=== PATIENT | female | born 1955 | race Caucasian/White ===

== ENCOUNTER → 2016-03-15 | Outpatient (CLI) | payer OTHER ==
[~2016-03-15] MED LIST: ASPIRIN 81M81 MG/TA2 PO; CARDIZEM CD 24240 MG PO; CATAPRES 0.1MG0.1 MG PO; CEFTIN500 MG PO; CLARITIN 1010 MG/TAB PO; FERROUS SU325 MG/TAB PO; FLONASE NASAL S16 GM NS; GLUCOPHAGE XR750 MG PO; HCTZ 25MG TAB25 MG PO; INDERAL 20MG20 MG PO; KLOR-CON M2020 MEQ PO; LANTUS100 U/ML SC; LASIX 20MG TABL20 MG PO; NORVASC 10MG10 MG PO; NOVOLOG 100U100 U/M1 SQ; PERCOCET 325 MG1 TA2 PO; PERCOCET 325 MG1 TA3 PO; PRAVACHOL 40MG40 MG PO; PREDNISONE10 MG PO; PREDNISONE20 MG PO; PRILOSEC 20MG20 MG PO; PROAIR HFA0.09 MG/AC IH; RT ADVAIR HFA 1112 G IH; SINEMET 10/101 UDTAB PO; TENORMIN100 MG PO; TRESIBA FL100 UNIT/1 SQ; ULTRAM 50MG TAB50 MG PO; VALIUM 5MG T5 MG/TAB PO; VOLTAREN 50MG T50 MG PO; ZITHROMAX500 M2 PO; ZOLOFT 100MG100 MG PO
[2016-03-15 15:07] LABS: ADJUSTED CALCIUM 9.5 mg/dL (8.4-10.2); ALBUMIN 3.9 gm/dL (3.5-5.0); BILIRUBIN,TOTAL 1.2 mg/dL (0.0-1.0); CALCIUM 9.4 mg/dL (8.4-10.2); CREATININE, serum 0.76 mg/dL (0.52-1.25); POTASSIUM 3.8 mmol/L (3.4-5.0); TOTAL PROTEIN 8.4 gm/dL (6.4-8.2)
== END ==
LOC: COL.LAB 14:31
PROVIDERS: Family Medicine
DX: R06.09 Other forms of dyspnea (principal)

== ENCOUNTER → 2016-03-18 | Outpatient (CLI) | payer SELFPAY | LOC: COL.PUL 09:30 | DX: R06.02 Shortness of breath (principal) ==

== ENCOUNTER 2016-03-19 10:22 | Inpatient (IN) | payer OTHER ==
[~2016-03-19] VITALS: Ht 157.5 cm; Wt 124.9 kg
[~2016-03-19 10:22] MED LIST changes: -CARDIZEM CD 24240 MG PO; -CATAPRES 0.1MG0.1 MG PO; -CEFTIN500 MG PO; -FERROUS SU325 MG/TAB PO; -FLONASE NASAL S16 GM NS; -HCTZ 25MG TAB25 MG PO; -KLOR-CON M2020 MEQ PO; -LASIX 20MG TABL20 MG PO; -PERCOCET 325 MG1 TA3 PO; -PREDNISONE10 MG PO; -PREDNISONE20 MG PO; -PROAIR HFA0.09 MG/AC IH; -RT ADVAIR HFA 1112 G IH; -SINEMET 10/101 UDTAB PO; -TENORMIN100 MG PO; -TRESIBA FL100 UNIT/1 SQ; -ULTRAM 50MG TAB50 MG PO; -VALIUM 5MG T5 MG/TAB PO; -VOLTAREN 50MG T50 MG PO; -ZITHROMAX500 M2 PO
[2016-03-19 11:32] LABS: ALBUMIN 4.3 gm/dL (3.5-5.0); BILIRUBIN,TOTAL 1.3 mg/dL (0.0-1.0); CALCIUM 9.2 mg/dL (8.4-10.2); CREATININE, serum 0.88 mg/dL (0.52-1.25); POTASSIUM 3.1 mmol/L (3.4-5.0); TOTAL PROTEIN 8.9 gm/dL (6.4-8.2)
[2016-03-19 11:36] LABS: BASO % 0.4 % (0.0-2.0); EOS % 0.4 % (0-4.0); GRAN # 3.9 (1.4-6.5); GRAN % 70.4 % (42.2-75.2); HEMATOCRIT 32.7 % (37.0-47.0); HEMOGLOBIN 9.7 g/dl (12.5-16.0); LYMPH % 17.4 % (20.0-51.0); MEAN CELL VOLUME 78 fl (80.0-100.0); MEAN CORPUSCULAR HEMOGLOBIN 23 pg (27.0-31.0); MEAN CORPUSCULAR HGB CONC 30 g/dl (33.0-37.0); MEAN PLATELET VOLUME 10.4 fl (7.4-10.4); MONO # 0.6 (0.1-0.6); PLATELET COUNT 143 K/mm3 (130-400); RED BLOOD COUNT 4.21 M/mm3 (4.10-5.30); REDCELL DISTRIBUTION WIDTH-CV 18.4 % (11.5-14.5); WHITE BLOOD COUNT 5.5 K/mm3 (4.8-10.8)
[2016-03-19] MEDS ORDERED: PROAIR HFA0.09 MG/AC IH (11:45)
[2016-03-19] MEDS ORDERED: LASIX 20MG TABL20 MG PO (11:45)
[2016-03-19] MEDS ORDERED: TENORMIN100 MG PO (11:46)
[2016-03-19] MEDS ORDERED: SINEMET 10/101 UDTAB PO (11:46)
[2016-03-19] MEDS ORDERED: CATAPRES 0.1MG0.1 MG PO (11:47)
[2016-03-19] MEDS ORDERED: VOLTAREN 50MG T50 MG PO (11:47)
[2016-03-19] MEDS ORDERED: FLONASE NASAL S16 GM NS (11:47)
[2016-03-19] MEDS ORDERED: ULTRAM 50MG TAB50 MG PO (11:50)
[2016-03-19 18:03] VITALS: BP 148/59; PULSE 77; TEMP 99.9
[2016-03-19 20:10] VITALS: BP 149/69; PULSE 72; TEMP 99.8
[2016-03-20 00:20] VITALS: BP 142/62; PULSE 75; TEMP 99.8
[2016-03-20 04:30] VITALS: BP 131/66; PULSE 79; TEMP 102.1
[2016-03-20 07:36] VITALS: BP 137/52; PULSE 75; TEMP 99.5
[2016-03-20 08:39] LABS: BASO % 0.4 % (0.0-2.0); EOS % 0.2 % (0-4.0); GRAN # 4.1 (1.4-6.5); GRAN % 74.8 % (42.2-75.2); LYMPH # 0.8 (1.2-3.4); LYMPH % 14.8 % (20.0-51.0); MEAN CELL VOLUME 77 fl (80.0-100.0); MEAN CORPUSCULAR HGB CONC 30 g/dl (33.0-37.0); MEAN PLATELET VOLUME 10.3 fl (7.4-10.4); MONO # 0.5 (0.1-0.6); MONO % 9.3 % (1.7-9.3); PLATELET COUNT 130 K/mm3 (130-400); RED BLOOD COUNT 3.93 M/mm3 (4.10-5.30); REDCELL DISTRIBUTION WIDTH-CV 18.2 % (11.5-14.5); WHITE BLOOD COUNT 5.5 K/mm3 (4.8-10.8)
[2016-03-20 08:40] LABS: HEMATOCRIT 30.4 % (37.0-47.0); HEMOGLOBIN 9.1 g/dl (12.5-16.0); MEAN CORPUSCULAR HEMOGLOBIN 23 pg (27.0-31.0)
[2016-03-20 08:45] LABS: ADJUSTED CALCIUM 9.1 mg/dL (8.4-10.2); BILIRUBIN,TOTAL 1.3 mg/dL (0.0-1.0); CALCIUM 9.1 mg/dL (8.4-10.2); CREATININE, serum 0.83 mg/dL (0.52-1.25); MAGNESIUM 1.4 mg/dL (1.6-2.3); POTASSIUM 3.2 mmol/L (3.4-5.0); TOTAL PROTEIN 8.6 gm/dL (6.4-8.2)
[2016-03-20 11:04] VITALS: BP 134/53; PULSE 68; TEMP 99
[2016-03-20 16:32] VITALS: BP 156/51; PULSE 80; TEMP 100.6
[2016-03-20 19:43] VITALS: BP 118/56; PULSE 74; TEMP 99
[2016-03-21 00:14] VITALS: BP 114/57; PULSE 69; TEMP 98.6
[2016-03-21 05:03] VITALS: BP 103/73; PULSE 73; TEMP 99.6
[2016-03-21 05:56] LABS: PH 5 (5-8); SQUAMOUS EPITHELIAL None Seen /hpf; URINE APPEARANCE Clear; URINE BACTERIA None Seen /hpf; URINE BILIRUBIN Negative (NEGATIVE); URINE BLOOD Negative (NEGATIVE); URINE COLOR Yellow; URINE GLUCOSE Negative (NEGATIVE); URINE KETONE Negative (NEGATIVE); URINE RBC 0-2 /hpf
[2016-03-21 08:20] VITALS: BP 153/66; PULSE 82; TEMP 100.7
[2016-03-21 08:23] LABS: BASO % 0.4 % (0.0-2.0); EOS % 0.4 % (0-4.0); GRAN # 3.6 (1.4-6.5); GRAN % 67.7 % (42.2-75.2); LYMPH # 1.2 (1.2-3.4); LYMPH % 22.1 % (20.0-51.0); MEAN CORPUSCULAR HGB CONC 30 g/dl (33.0-37.0); MEAN PLATELET VOLUME 10.6 fl (7.4-10.4); MONO # 0.5 (0.1-0.6); PLATELET COUNT 145 K/mm3 (130-400); REDCELL DISTRIBUTION WIDTH-CV 18.3 % (11.5-14.5); WHITE BLOOD COUNT 5.3 K/mm3 (4.8-10.8)
[2016-03-21 08:35] LABS: HEMATOCRIT 31.8 % (37.0-47.0); HEMOGLOBIN 9.4 g/dl (12.5-16.0); MEAN CELL VOLUME 78 fl (80.0-100.0); MEAN CORPUSCULAR HEMOGLOBIN 23 pg (27.0-31.0)
[2016-03-21 09:36] LABS: ADJUSTED CALCIUM 9.1 mg/dL (8.4-10.2); BILIRUBIN,TOTAL 1.3 mg/dL (0.0-1.0); CALCIUM 9.1 mg/dL (8.4-10.2); CREATININE, serum 0.74 mg/dL (0.52-1.25); MAGNESIUM 1.5 mg/dL (1.6-2.3); POTASSIUM 3.3 mmol/L (3.4-5.0); TOTAL PROTEIN 8.7 gm/dL (6.4-8.2)
[2016-03-21 11:47] VITALS: BP 151/96; PULSE 63; TEMP 98.1
[2016-03-21 13:30] LABS: ARTERIAL BLD GAS O2 SATURATION 96.5 % (92-100); ARTERIAL BLD GAS TCO2 CT 33.4; ARTERIAL BLOOD GAS BASE EXCESS 7.2 (-2-2); ARTERIAL BLOOD GAS PHT 7.46 C (7.35-7.45); ARTERIAL BLOOD GAS PO2 85.7 mmHg (80-100); ARTERIAL BLOOD GAS PO2T 85.7 (80-100); ARTERIAL BLOOD GAS pH 7.46 (7.35-7.45); OXYHEMOGLOBIN 95.7 %
[2016-03-21 13:31] LABS: ALLEN TEST YES; ALLENS TEST RESULT PASS; ATS? YES
[2016-03-21 17:00] VITALS: BP 145/63; PULSE 69; TEMP 98.3
[2016-03-21 20:07] VITALS: BP 133/68; PULSE 64; TEMP 98
[2016-03-22 00:23] VITALS: BP 167/53; PULSE 77; TEMP 98.3
[2016-03-22 04:37] VITALS: BP 143/63; PULSE 77; TEMP 100.2
[2016-03-22 07:13] LABS: POTASSIUM 3.3 mmol/L (3.4-5.0)
[2016-03-22 08:12] VITALS: BP 136/57; PULSE 76; TEMP 99.4
[2016-03-22 10:36] LABS: RETIC % 1.8 % (0.5-3.52)
[2016-03-22 11:47] LABS: MAGNESIUM 1.6 mg/dL (1.6-2.3)
[2016-03-22 12:11] VITALS: BP 130/63; PULSE 67; TEMP 98.8
[2016-03-22 16:35] VITALS: BP 149/68; PULSE 78; TEMP 99.2
[2016-03-22 20:09] VITALS: BP 132/93; PULSE 74; TEMP 98.1
[2016-03-23] VITALS (7 sets, daily range): BP systolic 122–144; BP diastolic 51–64; PULSE 57–75; TEMP 97.3–98.4
[2016-03-23 08:21] LABS: GRAN % 73.5 % (42.2-75.2); LYMPH # 0.6 (1.2-3.4); LYMPH % 22.9 % (20.0-51.0); MEAN CELL VOLUME 77 fl (80.0-100.0); MEAN CORPUSCULAR HGB CONC 30 g/dl (33.0-37.0); MEAN PLATELET VOLUME 10.5 fl (7.4-10.4); MONO # 0.1 (0.1-0.6); MONO % 2.9 % (1.7-9.3); PLATELET COUNT 132 K/mm3 (130-400); RED BLOOD COUNT 4.06 M/mm3 (4.10-5.30); REDCELL DISTRIBUTION WIDTH-CV 17.5 % (11.5-14.5); WHITE BLOOD COUNT 2.8 K/mm3 (4.8-10.8)
[2016-03-23 08:25] LABS: HEMATOCRIT 31.2 % (37.0-47.0); HEMOGLOBIN 9.3 g/dl (12.5-16.0); MEAN CORPUSCULAR HEMOGLOBIN 23 pg (27.0-31.0)
[2016-03-23 08:37] LABS: ADJUSTED CALCIUM 9.3 mg/dL (8.4-10.2); ALBUMIN 3.8 gm/dL (3.5-5.0); BILIRUBIN,TOTAL 1.1 mg/dL (0.0-1.0); CALCIUM 9.1 mg/dL (8.4-10.2); CREATININE, serum 0.61 mg/dL (0.52-1.25); MAGNESIUM 1.4 mg/dL (1.6-2.3); POTASSIUM 3.8 mmol/L (3.4-5.0); TOTAL PROTEIN 8.3 gm/dL (6.4-8.2)
[2016-03-24] VITALS (10 sets, daily range): BP systolic 102–156; BP diastolic 40–77; PULSE 70–78; TEMP 97.5–98
[2016-03-24 08:16] LABS: POTASSIUM 3.3 mmol/L (3.4-5.0)
[2016-03-24 11:45] LABS: ADJUSTED CALCIUM 9.6 mg/dL (8.4-10.2); ALBUMIN 3.7 gm/dL (3.5-5.0); CALCIUM 9.4 mg/dL (8.4-10.2); CREATININE, serum 0.68 mg/dL (0.52-1.25); MAGNESIUM 1.6 mg/dL (1.6-2.3); TOTAL PROTEIN 8.5 gm/dL (6.4-8.2)
[2016-03-25] VITALS: BP 132/45; PULSE 70; TEMP 98
[2016-03-25 03:44] VITALS: BP 141/46; PULSE 69; TEMP 97.6
[2016-03-25 08:39] VITALS: BP 140/58; PULSE 86; TEMP 98.2
[2016-03-25 11:39] VITALS: BP 154/70; PULSE 79; TEMP 98.5
[2016-03-25] MEDS ORDERED: CARDIZEM CD 24240 MG PO (11:39)
[2016-03-25] MEDS ORDERED: CEFTIN500 MG PO (12:34)
[2016-03-25] MEDS ORDERED: ZITHROMAX500 M2 PO (12:34)
[2016-03-25] MEDS ORDERED: KLOR-CON M2020 MEQ PO (12:34)
[2016-03-25] MEDS ORDERED: RT ADVAIR HFA 1112 G IH (12:40)
[2016-03-25] MEDS ORDERED: PREDNISONE20 MG PO (12:40)
== END 2016-03-25 16:11 | disposition home or self-care (01) | DRG 291 ==
LOC: COL.ER 10:22 → MEDICAL 14:07 → SURG 03-20 13:00 → MEDICAL 03-20 15:34
PROVIDERS: Internal Medicine; Internal Medicine Pulmonary Disease; Nurse Practitioner; Nurse Practitioner Family
PROC: 0B958ZX Drainage of Right Middle Lobe Bronchus, Via Natural or Artificial Opening Endoscopic, Diagnostic (ICD-10-PCS; 2016-03-24)
PROC: 0B968ZX Drainage of Right Lower Lobe Bronchus, Via Natural or Artificial Opening Endoscopic, Diagnostic (ICD-10-PCS; 2016-03-24)
PROC: 0B988ZX Drainage of Left Upper Lobe Bronchus, Via Natural or Artificial Opening Endoscopic, Diagnostic (ICD-10-PCS; 2016-03-24)
PROC: 0B9B8ZX Drainage of Left Lower Lobe Bronchus, Via Natural or Artificial Opening Endoscopic, Diagnostic (ICD-10-PCS; 2016-03-24)
PROC: 0B948ZX Drainage of Right Upper Lobe Bronchus, Via Natural or Artificial Opening Endoscopic, Diagnostic (ICD-10-PCS; principal; 2016-03-24 09:00)
DX: I11.0 Hypertensive heart disease with heart failure (principal); J18.9 Pneumonia, unspecified organism; J96.01 Acute respiratory failure with hypoxia; Z68.43 Body mass index [BMI] 50.0-59.9, adult; R18.8 Other ascites; E66.01 Morbid (severe) obesity due to excess calories; E11.9 Type 2 diabetes mellitus without complications; Z79.4 Long term (current) use of insulin; E87.6 Hypokalemia; E83.42 Hypomagnesemia; I50.31 Acute diastolic (congestive) heart failure; D50.0 Iron deficiency anemia secondary to blood loss (chronic); G25.0 Essential tremor; K75.81 Nonalcoholic steatohepatitis (NASH)
CPT/HCPCS: 99232-AI; 99233-AI; 99239; G0378; J0696; J1650; J1815; J1940; J2405; J2704; J2920; J2930; J3475; J7030; J7120; J7512; Q9967

== ENCOUNTER 2016-06-16 10:06 | Emergency (ER) | payer OTHER ==
[~2016-06-16] VITALS: Ht 157.5 cm; Wt 117.7 kg
[~2016-06-16 10:06] MED LIST changes: +CARDIZEM CD 24240 MG PO; +CATAPRES 0.1MG0.1 MG PO; +CEFTIN500 MG PO; +FLONASE NASAL S16 GM NS; +KLOR-CON M2020 MEQ PO; +LASIX 20MG TABL20 MG PO; +PREDNISONE20 MG PO; +PROAIR HFA0.09 MG/AC IH; +RT ADVAIR HFA 1112 G IH; +SINEMET 10/101 UDTAB PO; +TENORMIN100 MG PO; +ULTRAM 50MG TAB50 MG PO; +VOLTAREN 50MG T50 MG PO; +ZITHROMAX500 M2 PO
[2016-06-16 10:13] VITALS: BP 142/72; PULSE 98; TEMP 98.4
[2016-06-16] MEDS ORDERED: TRESIBA FL100 UNIT/1 SQ (11:05)
[2016-06-16 11:54] LABS: SQUAMOUS EPITHELIAL 0-2 /hpf; URINE BACTERIA None Seen /hpf; URINE RBC 0-2 /hpf
[2016-06-16 12:02] LABS: PH 7 (5-8); URINE APPEARANCE Clear; URINE BILIRUBIN Negative (NEGATIVE); URINE BLOOD Negative (NEGATIVE); URINE COLOR Yellow; URINE GLUCOSE 2+ (NEGATIVE); URINE KETONE Negative (NEGATIVE); URINE UROBILINOGEN Negative (NEGATIVE)
[2016-06-16] MEDS ORDERED: VALIUM 5MG T5 MG/TAB PO (13:13)
[2016-06-16] MEDS ORDERED: PERCOCET 325 MG1 TA2 PO (13:13)
== END 2016-06-16 13:40 | disposition home or self-care (01) ==
LOC: COL.ER 10:06
PROVIDERS: Emergency Medicine
DX: M54.42 Lumbago with sciatica, left side (principal); I11.0 Hypertensive heart disease with heart failure; I50.9 Heart failure, unspecified; E11.9 Type 2 diabetes mellitus without complications; Z79.4 Long term (current) use of insulin; D64.9 Anemia, unspecified
CPT/HCPCS: J1170

== ENCOUNTER 2016-06-18 14:32 | Observation (INO) | payer OTHER ==
[~2016-06-18] VITALS: Ht 157.5 cm; Wt 102.4 kg
[~2016-06-18 14:32] MED LIST changes: +TRESIBA FL100 UNIT/1 SQ; +VALIUM 5MG T5 MG/TAB PO
[2016-06-18 15:32] LABS: BASO % 0.5 % (0.0-2.0); EOS # 0.1 (0.0-0.7); EOS % 1.2 % (0-4.0); GRAN # 5.6 (1.4-6.5); GRAN % 72.1 % (42.2-75.2); LYMPH # 1.5 (1.2-3.4); MEAN CELL VOLUME 71 fl (80.0-100.0); MEAN CORPUSCULAR HGB CONC 28 g/dl (33.0-37.0); MEAN PLATELET VOLUME 9.9 fl (7.4-10.4); MONO # 0.5 (0.1-0.6); MONO % 6.8 % (1.7-9.3); PLATELET COUNT 144 K/mm3 (130-400); RED BLOOD COUNT 4.19 M/mm3 (4.10-5.30); WHITE BLOOD COUNT 7.8 K/mm3 (4.8-10.8)
[2016-06-18 15:37] LABS: HEMATOCRIT 29.9 % (37.0-47.0); HEMOGLOBIN 8.5 g/dl (12.5-16.0); MEAN CORPUSCULAR HEMOGLOBIN 20 pg (27.0-31.0)
[2016-06-18 16:04] LABS: ADJUSTED CALCIUM 9.2 mg/dL (8.4-10.2); ALBUMIN 3.9 gm/dL (3.5-5.0); BILIRUBIN,TOTAL 0.9 mg/dL (0.0-1.0); C-REACTIVE PROTEIN 2.2 mg/dL (0.0-0.9); CALCIUM 9.1 mg/dL (8.4-10.2); CREATININE, serum 0.58 mg/dL (0.52-1.25); TOTAL PROTEIN 7.6 gm/dL (6.4-8.2)
[2016-06-18 16:17] LABS: ERYTHROCYTE SEDIMENTATION RATE 29 mm/hr (0-30)
[2016-06-18 16:20] LABS: PH 5 (5-8); URINE APPEARANCE Clear; URINE BACTERIA None Seen /hpf; URINE BILIRUBIN Negative (NEGATIVE); URINE BLOOD Negative (NEGATIVE); URINE COLOR Yellow; URINE GLUCOSE 3+ (NEGATIVE); URINE KETONE Trace (NEGATIVE); URINE RBC 0-2 /hpf; URINE UROBILINOGEN Negative (NEGATIVE)
[2016-06-18] MEDS ORDERED: HCTZ 25MG TAB25 MG PO (20:17)
[2016-06-18 21:20] VITALS: BP 148/65; PULSE 102; TEMP 99
[2016-06-18 23:16] VITALS: BP 140/63; PULSE 97; TEMP 98.3
[2016-06-19] VITALS (7 sets, daily range): BP systolic 121–129; BP diastolic 49–64; PULSE 87–97; TEMP 97.6–98.4
[2016-06-19 00:58] LABS: THYROID STIMULATING HORMONE 0.747 uIU/mL (0.465-4.680)
[2016-06-19 13:42] LABS: BASO % 0.1 % (0.0-2.0); GRAN % 87.9 % (42.2-75.2); HEMOGLOBIN 8.8 g/dl (12.5-16.0); LYMPH # 0.8 (1.2-3.4); MEAN CELL VOLUME 70 fl (80.0-100.0); MEAN CORPUSCULAR HEMOGLOBIN 20 pg (27.0-31.0); MEAN CORPUSCULAR HGB CONC 28 g/dl (33.0-37.0); MEAN PLATELET VOLUME 10.2 fl (7.4-10.4); MONO # 0.1 (0.1-0.6); MONO % 0.9 % (1.7-9.3); PLATELET COUNT 147 K/mm3 (130-400); RED BLOOD COUNT 4.42 M/mm3 (4.10-5.30); REDCELL DISTRIBUTION WIDTH-CV 18.1 % (11.5-14.5)
[2016-06-19 13:50] LABS: CALCIUM 9.2 mg/dL (8.4-10.2); CREATININE, serum 0.56 mg/dL (0.52-1.25); POTASSIUM 3.8 mmol/L (3.4-5.0)
[2016-06-20 03:26] VITALS: BP 116/66; PULSE 90; TEMP 98.2
[2016-06-20 07:39] VITALS: BP 131/68; PULSE 87; TEMP 97.4
[2016-06-20] MEDS ORDERED: FERROUS SU325 MG/TAB PO (08:33)
[2016-06-20] MEDS ORDERED: PREDNISONE10 MG PO (10:03)
[2016-06-20 11:11] VITALS: BP 150/64; PULSE 107
[2016-06-20] MEDS ORDERED: PERCOCET 325 MG1 TA3 PO (15:51)
== END 2016-06-20 15:55 | disposition home or self-care (01) ==
LOC: COL.ER 14:32 → MEDICAL 18:19
PROVIDERS: Emergency Medicine; Family Medicine
DX: R09.02 Hypoxemia (principal); G47.33 Obstructive sleep apnea (adult) (pediatric); M54.32 Sciatica, left side; D50.9 Iron deficiency anemia, unspecified; E78.5 Hyperlipidemia, unspecified; E66.9 Obesity, unspecified; E11.8 Type 2 diabetes mellitus with unspecified complications; Z79.4 Long term (current) use of insulin; Z79.84 Long term (current) use of oral hypoglycemic drugs
CPT/HCPCS: 99223-AI; 99233-AI; G0378; G8978-GP; G8979-GP; J1170; J1650; J1815; J2920; J3360